=== PATIENT | female | born 1960 | race Caucasian/White ===

== ENCOUNTER 2016-12-16 13:57 | Emergency (ER) | payer SELFPAY ==
[~2016-12-16 13:57] MED LIST: ADVIL200 M2 PO; ALBUTEROL SULF8.5 GM IH; AMLODIPINE BESYL5 MG PO; AMOXICILLIN500 M1 PO; ASPIRIN81 M1 PO; ATARAX50 MG PO; BYSTOLIC10 MG PO; CARVEDILOL6.25 M1 PO; CATAPRES0.2 M1 PO; CELEBREX200 M1 PO; CITALOPRAM HBR20 MG PO; COMBIVENT RESPIM4 G1 INH; COREG12.5 M1 PO; CYMBALTA30 M1; DARVOCET-N 1001 TAB PO; DELTASONE20 MG PO; DULERA 200 MCG/13 G1 INH; EPIPEN0.3 MG/0.1 IM; FLEXERIL10 MG PO; FUROSEMIDE20 M1 PO; HYDROCODON-ACE1 EA17 PO; HYDROCODON-ACE1 EAC7 PO; HYDROXYZINE HCL25 M1 PO; IBUPROFEN400 M1 PO; IBUPROFEN800 M1 PO; LEVAQUIN500 MG PO; LISINOPRIL; LISINOPRIL-HCT1 EAC2 PO; LISINOPRIL40 M1 PO; LOSARTAN POTASS50 MG PO; MAGOX 400400 M1 PO; METHOCARBAMOL750 M1 PO; METOPROLOL SUCC25 M1 PO; MIRTAZAPINE15 M1 PO; MUCINEX600 M1 PO; MULTI VITAMIN1 EAC2 PO; NAPROXEN500 M1 PO; NEURONTIN300 M1 PO; NICOTINE PATCH1 EAC1 TP; NORCO 10/325 TA1 TAB PO; NORCO 5/325 TAB1 TAB PO; NORVASC2.5 M1 PO; NORVASC5 M1 PO; NORVASC5 M2 PO; PERCOCET 5-3251 EACH PO; PERCOCET 5/3251 TAB PO; POTASSIUM CHLO20 ME3 PO; PREDNISONE10 MG PO; PREDNISONE20 MG PO; PRINIVIL20 M1 PO; PROTONIX40 M2 PO; SYMBICORT 160-1 PUFF INH; TESSALON PERLE100 M1; THIAMINE HCL100 M2 PO; TRAMADOL HCL50 M1 PO; TRAZODONE50 MG PO; TYLENOL ARTHRI650 MG PO; TYLENOL EXTRA500 M1 PO; ULTRAM50 M1 PO; VENTOLIN HFA18 G2 PO; XANAX0.25 M1 PO; ZESTRIL20 M3 PO; ZESTRIL40 M2 PO; ZOFRAN4 M2 PO; ZYRTEC PO; [UNRECOGNIZED DRUG - OTHER]; [UNRECOGNIZED DRUG - OTHER] PO; duoneb
[2016-12-16] MEDS ORDERED: PRINIVIL20 M1 PO (14:10)
[2016-12-16] MEDS ORDERED: NICOTINE PATCH1 EACH TP (14:10)
[2016-12-16] MEDS ORDERED: OMEPRAZOLE20 M3 PO (14:28)
[2016-12-16] MEDS ORDERED: NEURONTIN600 M1 PO (14:28)
[2016-12-16] MEDS ORDERED: BAYER CHEWABLE81 M2 CH (14:28)
[2016-12-16] MEDS ORDERED: CLONIDINE HCL0.1 M2 PO (14:29)
[2016-12-16] MEDS ORDERED: ARTHRITIS PAIN650 M7 PO (14:33)
[2016-12-16] MEDS ORDERED: NORVASC5 M2 PO (14:33)
[2016-12-16] MEDS ORDERED: ULTRAM50 M1 PO (14:34)
[2016-12-16] MEDS ORDERED: TESSALON PERLE100 M1 PO ×2 (14:34→16:57)
[2016-12-16] MEDS ORDERED: VENTOLIN HFA18 G2 INH (14:34)
[2016-12-16 15:06] LABS: BASO % 0.6 % (0-2); EOS % 1.1 % (0-7); EOSINOPHIL ABSOLUTE COUNT 0.1 tho/cmm (0.0-0.7); HCT-HEMATOCRIT 36.7 % (34.0-49.0); HGB-HEMOGLOBIN 11.5 gm/dl (12.0-15.5); LYMPH % 25.9 % (20-45); LYMPH ABSOLUTE COUNT 1.4 tho/cmm (0.8-4.5); MCH (MEAN CORPUSCULAR HGB) 26.1 pg (28.0-32.0); MCHC MEAN CORPUSCULAR HGB CONC 31.3 % (32.0-36.0); MCV (MEAN CELL VOLUME) 83.4 fl (82.0-96.0); MONO % 8.6 % (0-12); MONOCYTE ABSOLUTE COUNT 0.5 tho/cmm (0.0-1.2); NEUTROPHIL ABSOLUTE COUNT 3.4 tho/cmm (1.6-8.0); NEUTROPHIL-AUTOMATED 3.4 tho/cmm (1.6-8.0); NEUTROPHILS % 63.8 % (40-80); PLATELET COUNT 243 tho/cmm (150-450); RED CELL DISTRIBUTION WIDTH 16.6 % (12.4-16.4); WHITE BLOOD COUNT 5.3 tho/cmm (4.0-10.0)
[2016-12-16 15:18] LABS: ANION GAP 14 mmol/L (0-20); BLOOD UREA NITROGEN 12 mg/dl (6-24); CALCIUM 8.5 mg/dl (8.5-10.5); CARBON DIOXIDE-VENOUS 24 mmol/L (22-32); CHLORIDE 109 mmol/l (96-110); CREATININE 0.51 mg/dl (0.50-1.10); GLUCOSE 111 mg/dL (70-110); POTASSIUM 3.7 mmol/L (3.7-5.1); SODIUM 143 mmol/L (135-145); eGFR VALUE FOR BLACK >90 mL/Min
[2016-12-16] MEDS ORDERED: NORCO 5-325 TA1 EACH PO (16:57)
[2016-12-16] MEDS ORDERED: PROMETHAZINE HC25 M3 PO (16:57)
[2017-04-15] MEDS ORDERED: PROTONIX40 M2 PO (11:01)
[2017-04-15] MEDS ORDERED: ZOFRAN4 M2 PO/SL (11:01)
[2017-04-15] MEDS ORDERED: CARAFATE1 GM/10 M1 PO (11:02)
[2017-04-15] MEDS ORDERED: BYSTOLIC5 M1 PO (11:02)
[2017-04-15] MEDS ORDERED: PRINIVIL20 M1 PO (11:03)
[2017-04-15] MEDS ORDERED: STOP THE FOLLOWING: (11:03)
[2017-04-16] MEDS ORDERED: VANCOMYCIN HCL500 MG PO (11:19)
[2017-04-16] MEDS ORDERED: PERCOCET 10-321 EACH PO (11:20)
[2017-06-22] MEDS ORDERED: PRINIVIL20 M1 PO (01:14)
[2017-06-22] MEDS ORDERED: NORVASC10 M2 PO (01:15)
[2017-06-22] MEDS ORDERED: OXYCONTIN10 M2 PO (01:16)
[2017-06-22] MEDS ORDERED: LOPRESSOR50 M1 PO (01:16)
[2017-06-22] MEDS ORDERED: ULTRAM50 M1 PO (01:17)
[2017-06-22] MEDS ORDERED: PROTONIX40 M2 PO (01:17)
[2017-06-22] MEDS ORDERED: VALIUM2 M1 PO (01:18)
[2017-06-22] MEDS ORDERED: HYDROCHLOROTH12.5 M2 PO (01:18)
[2017-06-22] MEDS ORDERED: NEURONTIN600 M1 PO (01:19)
[2017-06-22] MEDS ORDERED: CYMBALTA30 M1 PO (01:19)
[2017-06-22] MEDS ORDERED: TYLENOL EXTRA500 M1 PO (01:20)
[2017-06-22] MEDS ORDERED: BACLOFEN10 M1 PO (01:20)
[2017-06-22] MEDS ORDERED: FEOSOL325 M1 PO (01:20)
[2017-06-22] MEDS ORDERED: ZOFRAN4 M2 PO (01:21)
[2017-06-22] MEDS ORDERED: MIRALAX17 G2 PO (01:21)
[2017-06-22] MEDS ORDERED: SYMBICORT 160-1 PUFF INH (01:24)
[2017-06-22] MEDS ORDERED: NORVASC5 M2 PO (10:32)
[2017-06-22] MEDS ORDERED: TENORMIN50 M1 PO (10:32)
[2017-06-22] MEDS ORDERED: SYMBICORT 80-41 PUFF INH (10:33)
== END 2016-12-16 17:48 ==
LOC: EDMED 13:57
PROVIDERS: Emergency Medicine
DX: R07.89 Other chest pain (principal); R05 Cough; E86.0 Dehydration; J44.9 Chronic obstructive pulmonary disease, unspecified; Z90.49 Acquired absence of other specified parts of digestive tract; Z79.51 Long term (current) use of inhaled steroids
CPT/HCPCS: J1170; J2060; J2405; J2930; J7030; Q9967

== ENCOUNTER 2016-12-16 18:15 | Emergency (ER) | payer SELFPAY ==
[~2016-12-16 18:15] MED LIST changes: +ARTHRITIS PAIN650 M7 PO; +BAYER CHEWABLE81 M2 CH; +CLONIDINE HCL0.1 M2 PO; +NEURONTIN600 M1 PO; +NICOTINE PATCH1 EACH TP; +NORCO 5-325 TA1 EACH PO; +OMEPRAZOLE20 M3 PO; +PROMETHAZINE HC25 M3 PO; +TESSALON PERLE100 M1 PO; +VENTOLIN HFA18 G2 INH
[2017-04-15] MEDS ORDERED: PROTONIX40 M2 PO (11:01)
[2017-04-15] MEDS ORDERED: ZOFRAN4 M2 PO/SL (11:01)
[2017-04-15] MEDS ORDERED: BYSTOLIC5 M1 PO (11:02)
[2017-04-15] MEDS ORDERED: CARAFATE1 GM/10 M1 PO (11:02)
[2017-04-15] MEDS ORDERED: PRINIVIL20 M1 PO (11:03)
[2017-04-15] MEDS ORDERED: STOP THE FOLLOWING: (11:03)
[2017-04-16] MEDS ORDERED: VANCOMYCIN HCL500 MG PO (11:19)
[2017-04-16] MEDS ORDERED: PERCOCET 10-321 EACH PO (11:20)
[2017-06-22] MEDS ORDERED: PRINIVIL20 M1 PO (01:14)
[2017-06-22] MEDS ORDERED: NORVASC10 M2 PO (01:15)
[2017-06-22] MEDS ORDERED: OXYCONTIN10 M2 PO (01:16)
[2017-06-22] MEDS ORDERED: LOPRESSOR50 M1 PO (01:16)
[2017-06-22] MEDS ORDERED: PROTONIX40 M2 PO (01:17)
[2017-06-22] MEDS ORDERED: ULTRAM50 M1 PO (01:17)
[2017-06-22] MEDS ORDERED: VALIUM2 M1 PO (01:18)
[2017-06-22] MEDS ORDERED: HYDROCHLOROTH12.5 M2 PO (01:18)
[2017-06-22] MEDS ORDERED: NEURONTIN600 M1 PO (01:19)
[2017-06-22] MEDS ORDERED: CYMBALTA30 M1 PO (01:19)
[2017-06-22] MEDS ORDERED: BACLOFEN10 M1 PO (01:20)
[2017-06-22] MEDS ORDERED: FEOSOL325 M1 PO (01:20)
[2017-06-22] MEDS ORDERED: TYLENOL EXTRA500 M1 PO (01:20)
[2017-06-22] MEDS ORDERED: MIRALAX17 G2 PO (01:21)
[2017-06-22] MEDS ORDERED: ZOFRAN4 M2 PO (01:21)
[2017-06-22] MEDS ORDERED: SYMBICORT 160-1 PUFF INH (01:24)
[2017-06-22] MEDS ORDERED: NORVASC5 M2 PO (10:32)
[2017-06-22] MEDS ORDERED: TENORMIN50 M1 PO (10:32)
[2017-06-22] MEDS ORDERED: SYMBICORT 80-41 PUFF INH (10:33)
== END 2016-12-16 19:29 | disposition left against medical advice (07) ==
LOC: EDMED 18:15
DX: Z53.21 Procedure and treatment not carried out due to patient leaving prior to being seen by health care provider (principal)

== ENCOUNTER 2017-02-15 17:47 | Inpatient (IN) | payer SELFPAY ==
[2017-02-15] MEDS ORDERED: CYMBALTA60 M1 PO (18:16)
[2017-02-15] MEDS ORDERED: BACTRIM DS TAB1 EAC2 PO (18:17)
[2017-02-15 18:29] LABS: BASO % 0.6 % (0-2); EOS % 1.4 % (0-7); EOSINOPHIL ABSOLUTE COUNT 0.1 tho/cmm (0.0-0.7); HCT-HEMATOCRIT 36.3 % (34.0-49.0); HGB-HEMOGLOBIN 11.7 gm/dl (12.0-15.5); LYMPH % 24.2 % (20-45); LYMPH ABSOLUTE COUNT 1.2 tho/cmm (0.8-4.5); MCH (MEAN CORPUSCULAR HGB) 28.2 pg (28.0-32.0); MCHC MEAN CORPUSCULAR HGB CONC 32.2 % (32.0-36.0); MCV (MEAN CELL VOLUME) 87.5 fl (82.0-96.0); MONO % 12.5 % (0-12); MONOCYTE ABSOLUTE COUNT 0.6 tho/cmm (0.0-1.2); NEUTROPHIL ABSOLUTE COUNT 3.1 tho/cmm (1.6-8.0); NEUTROPHIL-AUTOMATED 3.1 tho/cmm (1.6-8.0); NEUTROPHILS % 61.3 % (40-80); PLATELET COUNT 272 tho/cmm (150-450); RED BLOOD COUNT 4.15 mil/cmm (4.00-5.20); RED CELL DISTRIBUTION WIDTH 17.3 % (12.4-16.4); WHITE BLOOD COUNT 5.1 tho/cmm (4.0-10.0)
[2017-02-15 18:43] LABS: ANION GAP 15 mmol/L (0-20); BLOOD UREA NITROGEN 11 mg/dl (6-24); CALCIUM 8.6 mg/dl (8.5-10.5); CARBON DIOXIDE-VENOUS 24 mmol/L (22-32); CHLORIDE 107 mmol/l (96-110); CREATININE 0.59 mg/dl (0.50-1.10); GLUCOSE 95 mg/dL (70-110); POTASSIUM 3.7 mmol/L (3.7-5.1); SODIUM 142 mmol/L (135-145); eGFR VALUE FOR BLACK >90 mL/Min
[2017-02-15 20:42] LABS: URINE BILIRUBIN NEGATIVE (NEG); URINE BLOOD NEGATIVE (NEG); URINE GLUCOSE (UA) NEGATIVE (NEG); URINE KETONE SMALL (NEG); URINE LEUKOCYTE ESTERASE NEGATIVE (NEG); URINE NITRITE NEGATIVE (NEG); URINE PROTEIN NEGATIVE (NEG)
[2017-02-15 20:52] LABS: URINE APPEARANCE CLEAR; URINE COLOR YELLOW
[2017-02-16 06:36] LABS: BASO % 0.3 % (0-2); HCT-HEMATOCRIT 39.4 % (34.0-49.0); HGB-HEMOGLOBIN 12.9 gm/dl (12.0-15.5); LYMPH % 11.1 % (20-45); LYMPH ABSOLUTE COUNT 0.4 tho/cmm (0.8-4.5); MCH (MEAN CORPUSCULAR HGB) 28.4 pg (28.0-32.0); MCHC MEAN CORPUSCULAR HGB CONC 32.7 % (32.0-36.0); MCV (MEAN CELL VOLUME) 86.6 fl (82.0-96.0); MEAN PLATELET VOLUME 9.2 cmc (9.4-12.4); MONO % 0.9 % (0-12); NEUTROPHIL ABSOLUTE COUNT 2.8 tho/cmm (1.6-8.0); NEUTROPHIL-AUTOMATED 2.8 tho/cmm (1.6-8.0); NEUTROPHILS % 87.7 % (40-80); PLATELET COUNT 261 tho/cmm (150-450); RED BLOOD COUNT 4.55 mil/cmm (4.00-5.20); RED CELL DISTRIBUTION WIDTH 16.8 % (12.4-16.4); WHITE BLOOD COUNT 3.2 tho/cmm (4.0-10.0)
[2017-02-16 06:46] LABS: ANION GAP 15 mmol/L (0-20); BLOOD UREA NITROGEN 4 mg/dl (6-24); CALCIUM 8.7 mg/dl (8.5-10.5); CARBON DIOXIDE-VENOUS 22 mmol/L (22-32); CHLORIDE 104 mmol/l (96-110); CREATININE 0.46 mg/dl (0.50-1.10); POTASSIUM 3.6 mmol/L (3.7-5.1); SODIUM 137 mmol/L (135-145); eGFR VALUE FOR BLACK >90 mL/Min
[2017-02-16 06:49] LABS: GLUCOSE 172 mg/dL (70-110)
[2017-02-19] MEDS ORDERED: CATAPRES0.1 M1 PO (16:28)
[2017-02-19] MEDS ORDERED: PREDNISONE10 M1 PO (16:31)
[2017-04-15] MEDS ORDERED: PROTONIX40 M2 PO (11:01)
[2017-04-15] MEDS ORDERED: ZOFRAN4 M2 PO/SL (11:01)
[2017-04-15] MEDS ORDERED: CARAFATE1 GM/10 M1 PO (11:02)
[2017-04-15] MEDS ORDERED: BYSTOLIC5 M1 PO (11:02)
[2017-04-15] MEDS ORDERED: PRINIVIL20 M1 PO (11:03)
[2017-04-15] MEDS ORDERED: STOP THE FOLLOWING: (11:03)
[2017-04-16] MEDS ORDERED: VANCOMYCIN HCL500 MG PO (11:19)
[2017-04-16] MEDS ORDERED: PERCOCET 10-321 EACH PO (11:20)
[2017-06-22] MEDS ORDERED: PRINIVIL20 M1 PO (01:14)
[2017-06-22] MEDS ORDERED: NORVASC10 M2 PO (01:15)
[2017-06-22] MEDS ORDERED: LOPRESSOR50 M1 PO (01:16)
[2017-06-22] MEDS ORDERED: OXYCONTIN10 M2 PO (01:16)
[2017-06-22] MEDS ORDERED: ULTRAM50 M1 PO (01:17)
[2017-06-22] MEDS ORDERED: PROTONIX40 M2 PO (01:17)
[2017-06-22] MEDS ORDERED: HYDROCHLOROTH12.5 M2 PO (01:18)
[2017-06-22] MEDS ORDERED: VALIUM2 M1 PO (01:18)
[2017-06-22] MEDS ORDERED: NEURONTIN600 M1 PO (01:19)
[2017-06-22] MEDS ORDERED: CYMBALTA30 M1 PO (01:19)
[2017-06-22] MEDS ORDERED: TYLENOL EXTRA500 M1 PO (01:20)
[2017-06-22] MEDS ORDERED: FEOSOL325 M1 PO (01:20)
[2017-06-22] MEDS ORDERED: BACLOFEN10 M1 PO (01:20)
[2017-06-22] MEDS ORDERED: MIRALAX17 G2 PO (01:21)
[2017-06-22] MEDS ORDERED: ZOFRAN4 M2 PO (01:21)
[2017-06-22] MEDS ORDERED: SYMBICORT 160-1 PUFF INH (01:24)
[2017-06-22] MEDS ORDERED: NORVASC5 M2 PO (10:32)
[2017-06-22] MEDS ORDERED: TENORMIN50 M1 PO (10:32)
[2017-06-22] MEDS ORDERED: SYMBICORT 80-41 PUFF INH (10:33)
== END 2017-02-19 18:32 | DRG 155 ==
LOC: EDMED 17:47 → EMR2 21:08 → CAR1 22:25
PROVIDERS: Emergency Medicine; Internal Medicine; ADMIT Hospitalist
PROC: 0CJS8ZZ Inspection of Larynx, Via Natural or Artificial Opening Endoscopic (ICD-10-PCS; principal; 2017-02-19)
DX: J38.3 Other diseases of vocal cords (principal); J45.901 Unspecified asthma with (acute) exacerbation; I10 Essential (primary) hypertension; E86.0 Dehydration; R11.2 Nausea with vomiting, unspecified; K21.9 Gastro-esophageal reflux disease without esophagitis; F32.9 Major depressive disorder, single episode, unspecified; R51 Headache; Z87.442 Personal history of urinary calculi; Z87.891 Personal history of nicotine dependence; J45.909 Unspecified asthma, uncomplicated; G47.33 Obstructive sleep apnea (adult) (pediatric); K59.00 Constipation, unspecified; B34.9 Viral infection, unspecified
CPT/HCPCS: G8978-GP-CI; G8978-GP-CK; G8979-GP-CI; G8979-GP-CJ; G8987-GO-CJ; G8988-GO-CI; G8989-GO-CJ; J0360; J1170; J2060; J2270; J2405; J2930; J7030; J7512; Q9967

== ENCOUNTER 2017-02-22 05:21 | Inpatient (IN) | payer SELFPAY ==
[~2017-02-22 05:21] MED LIST changes: +BACTRIM DS TAB1 EAC2 PO; +CATAPRES0.1 M1 PO; +CYMBALTA60 M1 PO; +PREDNISONE10 M1 PO
[2017-02-22 06:43] LABS: ALB/GLOB RATIO 1.1 (0.8-2.0); ALKALINE PHOSPHATASE 128 U/L (33-138); ALT/SGPT 39 U/L (12-78); ANION GAP 16 mmol/L (0-20); AST/SGOT 22 U/L (10-40); BLOOD UREA NITROGEN 12 mg/dl (6-24); CALCIUM 8.7 mg/dl (8.5-10.5); CARBON DIOXIDE-VENOUS 24 mmol/L (22-32); CHLORIDE 102 mmol/l (96-110); CREATININE 0.44 mg/dl (0.50-1.10); GLUCOSE 79 mg/dL (70-110); LIPASE 73 U/L (73-393); POTASSIUM 3.6 mmol/L (3.7-5.1); SODIUM 138 mmol/L (135-145); eGFR VALUE FOR BLACK >90 mL/Min
[2017-02-22 06:47] LABS: BASO % 0.2 % (0-2); EOS % 1.5 % (0-7); EOSINOPHIL ABSOLUTE COUNT 0.1 tho/cmm (0.0-0.7); HGB-HEMOGLOBIN 13.6 gm/dl (12.0-15.5); IMMATURE GRANULOCYTES ABSOLUTE 0.05 tho/cmm (0-0.03); IMMATURE GRANULOCYTES PERCENT 1.1 % (0-0.3); LYMPH % 22.3 % (20-45); MCH (MEAN CORPUSCULAR HGB) 28.8 pg (28.0-32.0); MCHC MEAN CORPUSCULAR HGB CONC 33.2 % (32.0-36.0); MCV (MEAN CELL VOLUME) 86.9 fl (82.0-96.0); MEAN PLATELET VOLUME 9.9 cmc (9.4-12.4); MONOCYTE ABSOLUTE COUNT 0.5 tho/cmm (0.0-1.2); NEUTROPHILS % 63.9 % (40-80); PLATELET COUNT 109 tho/cmm (150-450); RED BLOOD COUNT 4.72 mil/cmm (4.00-5.20); RED CELL DISTRIBUTION WIDTH 17.2 % (12.4-16.4); WHITE BLOOD COUNT 4.6 tho/cmm (4.0-10.0)
[2017-02-24 06:37] LABS: ALBUMIN 3.6 g/dl (3.5-5.0); BLOOD UREA NITROGEN 9 mg/dl (6-24); CALCIUM 8.7 mg/dl (8.5-10.5); CARBON DIOXIDE-VENOUS 29 mmol/L (22-32); CHLORIDE 104 mmol/l (96-110); CREATININE 0.57 mg/dl (0.50-1.10); GLUCOSE 95 mg/dL (70-110); PHOSPHOROUS 3.4 mg/dl (2.5-4.9); SODIUM 141 mmol/L (135-145); eGFR VALUE FOR BLACK >90 mL/Min
[2017-02-24 06:40] LABS: ANION GAP 12 mmol/L (0-20)
[2017-02-24 06:41] LABS: MAGNESIUM 2.2 mg/dl (1.8-2.6)
[2017-02-26 05:32] LABS: BASO % 0.3 % (0-2); EOS % 3.3 % (0-7); EOSINOPHIL ABSOLUTE COUNT 0.2 tho/cmm (0.0-0.7); HCT-HEMATOCRIT 40.5 % (34.0-49.0); HGB-HEMOGLOBIN 12.4 gm/dl (12.0-15.5); IMMATURE GRANULOCYTES ABSOLUTE 0.03 tho/cmm (0-0.03); IMMATURE GRANULOCYTES PERCENT 0.4 % (0-0.3); LYMPH % 28.7 % (20-45); LYMPH ABSOLUTE COUNT 1.9 tho/cmm (0.8-4.5); MCH (MEAN CORPUSCULAR HGB) 28.5 pg (28.0-32.0); MCHC MEAN CORPUSCULAR HGB CONC 30.6 % (32.0-36.0); MEAN PLATELET VOLUME 9.5 cmc (9.4-12.4); MONOCYTE ABSOLUTE COUNT 0.9 tho/cmm (0.0-1.2); NEUTROPHIL ABSOLUTE COUNT 3.6 tho/cmm (1.6-8.0); NEUTROPHIL-AUTOMATED 3.6 tho/cmm (1.6-8.0); NEUTROPHILS % 54.3 % (40-80); PLATELET COUNT 244 tho/cmm (150-450); RED BLOOD COUNT 4.35 mil/cmm (4.00-5.20); WHITE BLOOD COUNT 6.7 tho/cmm (4.0-10.0)
[2017-02-26 05:41] LABS: MCV (MEAN CELL VOLUME) 93.1 fl (82.0-96.0)
[2017-02-26 05:43] LABS: ANION GAP 11 mmol/L (0-20); BLOOD UREA NITROGEN 14 mg/dl (6-24); CALCIUM 8.6 mg/dl (8.5-10.5); CARBON DIOXIDE-VENOUS 31 mmol/L (22-32); CHLORIDE 104 mmol/l (96-110); CREATININE 0.57 mg/dl (0.50-1.10); GLUCOSE 97 mg/dL (70-110); SODIUM 142 mmol/L (135-145); eGFR VALUE FOR BLACK >90 mL/Min
[2017-02-26 05:45] LABS: POTASSIUM 4.3 mmol/L (3.7-5.1)
[2017-02-28 06:36] LABS: BASO % 0.3 % (0-2); EOS % 3.2 % (0-7); EOSINOPHIL ABSOLUTE COUNT 0.2 tho/cmm (0.0-0.7); HCT-HEMATOCRIT 39.4 % (34.0-49.0); HGB-HEMOGLOBIN 12.1 gm/dl (12.0-15.5); LYMPH % 18.8 % (20-45); LYMPH ABSOLUTE COUNT 1.1 tho/cmm (0.8-4.5); MCH (MEAN CORPUSCULAR HGB) 28.7 pg (28.0-32.0); MCHC MEAN CORPUSCULAR HGB CONC 30.7 % (32.0-36.0); MCV (MEAN CELL VOLUME) 93.4 fl (82.0-96.0); MEAN PLATELET VOLUME 10.1 cmc (9.4-12.4); MONO % 12.9 % (0-12); MONOCYTE ABSOLUTE COUNT 0.8 tho/cmm (0.0-1.2); NEUTROPHIL ABSOLUTE COUNT 3.9 tho/cmm (1.6-8.0); NEUTROPHIL-AUTOMATED 3.9 tho/cmm (1.6-8.0); NEUTROPHILS % 64.8 % (40-80); PLATELET COUNT 221 tho/cmm (150-450); RED BLOOD COUNT 4.22 mil/cmm (4.00-5.20); RED CELL DISTRIBUTION WIDTH 17.5 % (12.4-16.4)
[2017-03-02 06:29] LABS: BASO % 0.9 % (0-2); EOS % 4.4 % (0-7); EOSINOPHIL ABSOLUTE COUNT 0.1 tho/cmm (0.0-0.7); HCT-HEMATOCRIT 37.3 % (34.0-49.0); HGB-HEMOGLOBIN 11.7 gm/dl (12.0-15.5); IMMATURE GRANULOCYTES ABSOLUTE 0.01 tho/cmm (0-0.03); IMMATURE GRANULOCYTES PERCENT 0.3 % (0-0.3); LYMPH % 25.4 % (20-45); LYMPH ABSOLUTE COUNT 0.8 tho/cmm (0.8-4.5); MCH (MEAN CORPUSCULAR HGB) 28.8 pg (28.0-32.0); MCHC MEAN CORPUSCULAR HGB CONC 31.4 % (32.0-36.0); MCV (MEAN CELL VOLUME) 91.9 fl (82.0-96.0); MEAN PLATELET VOLUME 9.9 cmc (9.4-12.4); MONO % 17.9 % (0-12); MONOCYTE ABSOLUTE COUNT 0.6 tho/cmm (0.0-1.2); NEUTROPHIL ABSOLUTE COUNT 1.6 tho/cmm (1.6-8.0); NEUTROPHIL-AUTOMATED 1.6 tho/cmm (1.6-8.0); NEUTROPHILS % 51.1 % (40-80); PLATELET COUNT 195 tho/cmm (150-450); RED BLOOD COUNT 4.06 mil/cmm (4.00-5.20); RED CELL DISTRIBUTION WIDTH 17.6 % (12.4-16.4); WHITE BLOOD COUNT 3.2 tho/cmm (4.0-10.0)
[2017-03-02 16:33] LABS: ANION GAP 15 mmol/L (0-20); BLOOD UREA NITROGEN 8 mg/dl (6-24); CALCIUM 8.9 mg/dl (8.5-10.5); CARBON DIOXIDE-VENOUS 29 mmol/L (22-32); CHLORIDE 106 mmol/l (96-110); CREATININE 0.56 mg/dl (0.50-1.10); GLUCOSE 96 mg/dL (70-110); MAGNESIUM 1.7 mg/dl (1.8-2.6); PHOSPHOROUS 4.1 mg/dl (2.5-4.9); POTASSIUM 3.9 mmol/L (3.7-5.1); SODIUM 146 mmol/L (135-145); eGFR VALUE FOR BLACK >90 mL/Min
[2017-03-03] MEDS ORDERED: PROMETHAZINE HC25 M3 PO (13:43)
[2017-03-03] MEDS ORDERED: FLAGYL500 M1 PO (13:44)
[2017-03-03] MEDS ORDERED: NORCO 5-325 TA1 EACH PO (13:46)
[2017-03-03] MEDS ORDERED: COZAAR100 M1 PO (13:48)
[2017-03-03] MEDS ORDERED: METOPROLOL TART25 M1 PO (13:49)
[2017-03-03] MEDS ORDERED: ZOLOFT50 M1 PO (16:11)
[2017-03-03] MEDS ORDERED: ATIVAN1 M2 PO (16:12)
[2017-03-03] MEDS ORDERED: ACETAMINOPHEN325 M2 PO (16:19)
[2017-04-15] MEDS ORDERED: PROTONIX40 M2 PO (11:01)
[2017-04-15] MEDS ORDERED: ZOFRAN4 M2 PO/SL (11:01)
[2017-04-15] MEDS ORDERED: BYSTOLIC5 M1 PO (11:02)
[2017-04-15] MEDS ORDERED: CARAFATE1 GM/10 M1 PO (11:02)
[2017-04-15] MEDS ORDERED: PRINIVIL20 M1 PO (11:03)
[2017-04-15] MEDS ORDERED: STOP THE FOLLOWING: (11:03)
[2017-04-16] MEDS ORDERED: VANCOMYCIN HCL500 MG PO (11:19)
[2017-04-16] MEDS ORDERED: PERCOCET 10-321 EACH PO (11:20)
[2017-06-22] MEDS ORDERED: PRINIVIL20 M1 PO (01:14)
[2017-06-22] MEDS ORDERED: NORVASC10 M2 PO (01:15)
[2017-06-22] MEDS ORDERED: OXYCONTIN10 M2 PO (01:16)
[2017-06-22] MEDS ORDERED: LOPRESSOR50 M1 PO (01:16)
[2017-06-22] MEDS ORDERED: ULTRAM50 M1 PO (01:17)
[2017-06-22] MEDS ORDERED: PROTONIX40 M2 PO (01:17)
[2017-06-22] MEDS ORDERED: VALIUM2 M1 PO (01:18)
[2017-06-22] MEDS ORDERED: HYDROCHLOROTH12.5 M2 PO (01:18)
[2017-06-22] MEDS ORDERED: CYMBALTA30 M1 PO (01:19)
[2017-06-22] MEDS ORDERED: NEURONTIN600 M1 PO (01:19)
[2017-06-22] MEDS ORDERED: TYLENOL EXTRA500 M1 PO (01:20)
[2017-06-22] MEDS ORDERED: FEOSOL325 M1 PO (01:20)
[2017-06-22] MEDS ORDERED: BACLOFEN10 M1 PO (01:20)
[2017-06-22] MEDS ORDERED: MIRALAX17 G2 PO (01:21)
[2017-06-22] MEDS ORDERED: ZOFRAN4 M2 PO (01:21)
[2017-06-22] MEDS ORDERED: SYMBICORT 160-1 PUFF INH (01:24)
[2017-06-22] MEDS ORDERED: NORVASC5 M2 PO (10:32)
[2017-06-22] MEDS ORDERED: TENORMIN50 M1 PO (10:32)
[2017-06-22] MEDS ORDERED: SYMBICORT 80-41 PUFF INH (10:33)
== END 2017-03-03 17:46 | DRG 372 ==
LOC: EDMED 05:21 → EMR2 10:07 → 5WF 13:39
PROVIDERS: Emergency Medicine; Internal Medicine; Internal Medicine Nephrology; Specialist; ADMIT Internal Medicine
PROC: 0DB98ZX Excision of Duodenum, Via Natural or Artificial Opening Endoscopic, Diagnostic (ICD-10-PCS; principal; 2017-02-22)
PROC: 0DB68ZX Excision of Stomach, Via Natural or Artificial Opening Endoscopic, Diagnostic (ICD-10-PCS; 2017-02-22)
PROC: 05HC33Z Insertion of Infusion Device into Left Basilic Vein, Percutaneous Approach (ICD-10-PCS; 2017-02-22)
DX: A04.7 Enterocolitis due to Clostridium difficile (principal); J45.901 Unspecified asthma with (acute) exacerbation; D69.6 Thrombocytopenia, unspecified; K92.0 Hematemesis; K21.9 Gastro-esophageal reflux disease without esophagitis; I48.91 Unspecified atrial fibrillation; F43.10 Post-traumatic stress disorder, unspecified; F10.21 Alcohol dependence, in remission; R63.4 Abnormal weight loss; K59.00 Constipation, unspecified; F41.8 Other specified anxiety disorders; I16.0 Hypertensive urgency; Z87.891 Personal history of nicotine dependence; Z79.82 Long term (current) use of aspirin; Z87.11 Personal history of peptic ulcer disease; Z90.49 Acquired absence of other specified parts of digestive tract; Z86.73 Personal history of transient ischemic attack (TIA), and cerebral infarction without residual deficits; Z86.718 Personal history of other venous thrombosis and embolism
CPT/HCPCS: C1751; C9113; J0360; J2060; J2405; J7030; J7050; Q9967

== ENCOUNTER 2017-03-11 05:43 | Inpatient (IN) | payer SELFPAY ==
[~2017-03-11 05:43] MED LIST changes: +ACETAMINOPHEN325 M2 PO; +ATIVAN1 M2 PO; +COZAAR100 M1 PO; +FLAGYL500 M1 PO; +METOPROLOL TART25 M1 PO; +ZOLOFT50 M1 PO
[2017-03-11 06:42] LABS: BASO % 0.2 % (0-2); EOS % 2.4 % (0-7); EOSINOPHIL ABSOLUTE COUNT 0.2 tho/cmm (0.0-0.7); HCT-HEMATOCRIT 39.3 % (34.0-49.0); HGB-HEMOGLOBIN 13.2 gm/dl (12.0-15.5); IMMATURE GRANULOCYTES ABSOLUTE 0.01 tho/cmm (0-0.03); IMMATURE GRANULOCYTES PERCENT 0.2 % (0-0.3); LYMPH ABSOLUTE COUNT 0.8 tho/cmm (0.8-4.5); MCH (MEAN CORPUSCULAR HGB) 29.9 pg (28.0-32.0); MCHC MEAN CORPUSCULAR HGB CONC 33.6 % (32.0-36.0); MCV (MEAN CELL VOLUME) 88.9 fl (82.0-96.0); MEAN PLATELET VOLUME 9.5 cmc (9.4-12.4); MONO % 8.5 % (0-12); MONOCYTE ABSOLUTE COUNT 0.5 tho/cmm (0.0-1.2); NEUTROPHIL ABSOLUTE COUNT 4.8 tho/cmm (1.6-8.0); NEUTROPHIL-AUTOMATED 4.8 tho/cmm (1.6-8.0); NEUTROPHILS % 76.7 % (40-80); PLATELET COUNT 235 tho/cmm (150-450); RED BLOOD COUNT 4.42 mil/cmm (4.00-5.20); RED CELL DISTRIBUTION WIDTH 16.1 % (12.4-16.4); WHITE BLOOD COUNT 6.2 tho/cmm (4.0-10.0)
[2017-03-11 06:54] LABS: ALBUMIN 3.8 g/dl (3.5-5.0); ALCOHOL (ETOH) <10 mg/dl (<10); ALKALINE PHOSPHATASE 152 U/L (33-138); ALT/SGPT 67 U/L (12-78); AST/SGOT 37 U/L (10-40); BILIRUBIN,TOTAL 0.5 mg/dl (0-1.5); BLOOD UREA NITROGEN 9 mg/dl (6-24); CARBON DIOXIDE-VENOUS 25 mmol/L (22-32); CHLORIDE 104 mmol/l (96-110); CREATININE 0.69 mg/dl (0.50-1.10); GLUCOSE 115 mg/dL (70-110); LIPASE 96 U/L (73-393); SODIUM 141 mmol/L (135-145); eGFR VALUE FOR BLACK >90 mL/Min
[2017-03-11 06:58] LABS: ANION GAP 15 mmol/L (0-20); C-REACTIVE PROTEIN <0.3 mg/dl (0-0.9); POTASSIUM 2.9 mmol/L (3.7-5.1)
[2017-03-11 07:07] LABS: URINE APPEARANCE HAZY; URINE BILIRUBIN SMALL (NEG); URINE BLOOD MODERATE (NEG); URINE COLOR YELLOW; URINE GLUCOSE (UA) NEGATIVE (NEG); URINE KETONE SMALL (NEG); URINE LEUKOCYTE ESTERASE POSITIVE (NEG); URINE NITRITE NEGATIVE (NEG); URINE PROTEIN MODERATE (NEG); URINE SPECIFIC GRAVITY 1.015 (1.003-1.030)
[2017-03-11 07:16] LABS: URINE MUCUS 2+
[2017-03-11 07:17] LABS: URINE AMORPHOUS 1+; URINE BACTERIA 1+; URINE EPITHELIAL CELLS 0-2 /[HPF] (0-10); URINE RBC RARE /[HPF] (0-5)
[2017-03-11 09:37] LABS: MAGNESIUM 1.6 mg/dl (1.8-2.6)
[2017-03-11] MEDS ORDERED: OMEPRAZOLE20 M3 PO (11:52)
[2017-03-11] MEDS ORDERED: PRINIVIL20 M1 PO (11:52)
[2017-03-11] MEDS ORDERED: IPRAT-ALBUT 0.5-3 ML INH (11:53)
[2017-03-12 08:48] LABS: BASO % 0.3 % (0-2); EOS % 5.2 % (0-7); EOSINOPHIL ABSOLUTE COUNT 0.2 tho/cmm (0.0-0.7); HCT-HEMATOCRIT 35.1 % (34.0-49.0); HGB-HEMOGLOBIN 11.4 gm/dl (12.0-15.5); LYMPH % 22.7 % (20-45); LYMPH ABSOLUTE COUNT 0.8 tho/cmm (0.8-4.5); MCH (MEAN CORPUSCULAR HGB) 29.6 pg (28.0-32.0); MCHC MEAN CORPUSCULAR HGB CONC 32.5 % (32.0-36.0); MCV (MEAN CELL VOLUME) 91.2 fl (82.0-96.0); MEAN PLATELET VOLUME 9.4 cmc (9.4-12.4); MONO % 12.3 % (0-12); MONOCYTE ABSOLUTE COUNT 0.5 tho/cmm (0.0-1.2); NEUTROPHIL ABSOLUTE COUNT 2.2 tho/cmm (1.6-8.0); NEUTROPHIL-AUTOMATED 2.2 tho/cmm (1.6-8.0); NEUTROPHILS % 59.5 % (40-80); PLATELET COUNT 204 tho/cmm (150-450); RED BLOOD COUNT 3.85 mil/cmm (4.00-5.20); RED CELL DISTRIBUTION WIDTH 15.9 % (12.4-16.4); WHITE BLOOD COUNT 3.7 tho/cmm (4.0-10.0)
[2017-03-12 08:57] LABS: ANION GAP 12 mmol/L (0-20); BLOOD UREA NITROGEN 3 mg/dl (6-24); CALCIUM 8.2 mg/dl (8.5-10.5); CARBON DIOXIDE-VENOUS 26 mmol/L (22-32); CHLORIDE 107 mmol/l (96-110); CREATININE 0.36 mg/dl (0.50-1.10); GLUCOSE 98 mg/dL (70-110); MAGNESIUM 1.8 mg/dl (1.8-2.6); POTASSIUM 3.3 mmol/L (3.7-5.1); SODIUM 142 mmol/L (135-145); eGFR VALUE FOR BLACK >90 mL/Min
[2017-03-13 06:33] LABS: ANION GAP 12 mmol/L (0-20); BLOOD UREA NITROGEN 5 mg/dl (6-24); CALCIUM 8.3 mg/dl (8.5-10.5); CARBON DIOXIDE-VENOUS 25 mmol/L (22-32); CHLORIDE 108 mmol/l (96-110); GLUCOSE 121 mg/dL (70-110); POTASSIUM 3.9 mmol/L (3.7-5.1); SODIUM 141 mmol/L (135-145); eGFR VALUE FOR BLACK >90 mL/Min
[2017-03-15 06:07] LABS: BASO % 0.3 % (0-2); EOS % 7.6 % (0-7); EOSINOPHIL ABSOLUTE COUNT 0.3 tho/cmm (0.0-0.7); HGB-HEMOGLOBIN 10.9 gm/dl (12.0-15.5); IMMATURE GRANULOCYTES ABSOLUTE 0.01 tho/cmm (0-0.03); IMMATURE GRANULOCYTES PERCENT 0.3 % (0-0.3); LYMPH % 27.1 % (20-45); LYMPH ABSOLUTE COUNT 1.1 tho/cmm (0.8-4.5); MCH (MEAN CORPUSCULAR HGB) 29.4 pg (28.0-32.0); MCHC MEAN CORPUSCULAR HGB CONC 32.1 % (32.0-36.0); MCV (MEAN CELL VOLUME) 91.6 fl (82.0-96.0); MONO % 9.6 % (0-12); MONOCYTE ABSOLUTE COUNT 0.4 tho/cmm (0.0-1.2); NEUTROPHIL ABSOLUTE COUNT 2.2 tho/cmm (1.6-8.0); NEUTROPHIL-AUTOMATED 2.2 tho/cmm (1.6-8.0); NEUTROPHILS % 55.1 % (40-80); PLATELET COUNT 159 tho/cmm (150-450); RED BLOOD COUNT 3.71 mil/cmm (4.00-5.20); RED CELL DISTRIBUTION WIDTH 16.9 % (12.4-16.4)
[2017-03-15 06:19] LABS: ANION GAP 11 mmol/L (0-20); BLOOD UREA NITROGEN 8 mg/dl (6-24); CALCIUM 8.9 mg/dl (8.5-10.5); CARBON DIOXIDE-VENOUS 29 mmol/L (22-32); CHLORIDE 105 mmol/l (96-110); CREATININE 0.48 mg/dl (0.50-1.10); GLUCOSE 131 mg/dL (70-110); POTASSIUM 4.1 mmol/L (3.7-5.1); SODIUM 141 mmol/L (135-145); eGFR VALUE FOR BLACK >90 mL/Min
[2017-03-15] MEDS ORDERED: MIRALAX17 G2 PO (10:22)
[2017-03-15] MEDS ORDERED: SENNA8.6 M2 PO (10:24)
[2017-04-15] MEDS ORDERED: PROTONIX40 M2 PO (11:01)
[2017-04-15] MEDS ORDERED: ZOFRAN4 M2 PO/SL (11:01)
[2017-04-15] MEDS ORDERED: CARAFATE1 GM/10 M1 PO (11:02)
[2017-04-15] MEDS ORDERED: BYSTOLIC5 M1 PO (11:02)
[2017-04-15] MEDS ORDERED: PRINIVIL20 M1 PO (11:03)
[2017-04-15] MEDS ORDERED: STOP THE FOLLOWING: (11:03)
[2017-04-16] MEDS ORDERED: VANCOMYCIN HCL500 MG PO (11:19)
[2017-04-16] MEDS ORDERED: PERCOCET 10-321 EACH PO (11:20)
[2017-06-22] MEDS ORDERED: PRINIVIL20 M1 PO (01:14)
[2017-06-22] MEDS ORDERED: NORVASC10 M2 PO (01:15)
[2017-06-22] MEDS ORDERED: OXYCONTIN10 M2 PO (01:16)
[2017-06-22] MEDS ORDERED: LOPRESSOR50 M1 PO (01:16)
[2017-06-22] MEDS ORDERED: PROTONIX40 M2 PO (01:17)
[2017-06-22] MEDS ORDERED: ULTRAM50 M1 PO (01:17)
[2017-06-22] MEDS ORDERED: HYDROCHLOROTH12.5 M2 PO (01:18)
[2017-06-22] MEDS ORDERED: VALIUM2 M1 PO (01:18)
[2017-06-22] MEDS ORDERED: CYMBALTA30 M1 PO (01:19)
[2017-06-22] MEDS ORDERED: NEURONTIN600 M1 PO (01:19)
[2017-06-22] MEDS ORDERED: FEOSOL325 M1 PO (01:20)
[2017-06-22] MEDS ORDERED: BACLOFEN10 M1 PO (01:20)
[2017-06-22] MEDS ORDERED: TYLENOL EXTRA500 M1 PO (01:20)
[2017-06-22] MEDS ORDERED: MIRALAX17 G2 PO (01:21)
[2017-06-22] MEDS ORDERED: ZOFRAN4 M2 PO (01:21)
[2017-06-22] MEDS ORDERED: SYMBICORT 160-1 PUFF INH (01:24)
[2017-06-22] MEDS ORDERED: NORVASC5 M2 PO (10:32)
[2017-06-22] MEDS ORDERED: TENORMIN50 M1 PO (10:32)
[2017-06-22] MEDS ORDERED: SYMBICORT 80-41 PUFF INH (10:33)
== END 2017-03-15 15:05 | DRG 372 ==
LOC: EDMED 05:43 → EMR2 09:48 → 5WE 13:14
PROVIDERS: Emergency Medicine; Family Medicine; Physician Assistant; ADMIT Internal Medicine
PROC: 02HV33Z Insertion of Infusion Device into Superior Vena Cava, Percutaneous Approach (ICD-10-PCS; principal; 2017-03-11)
DX: A04.7 Enterocolitis due to Clostridium difficile (principal); E87.2 Acidosis; N39.0 Urinary tract infection, site not specified; K21.9 Gastro-esophageal reflux disease without esophagitis; Z87.11 Personal history of peptic ulcer disease; F41.9 Anxiety disorder, unspecified; F32.9 Major depressive disorder, single episode, unspecified; J44.9 Chronic obstructive pulmonary disease, unspecified; Z87.891 Personal history of nicotine dependence; Z79.82 Long term (current) use of aspirin; E87.6 Hypokalemia; J45.909 Unspecified asthma, uncomplicated; F43.10 Post-traumatic stress disorder, unspecified; E78.5 Hyperlipidemia, unspecified; M06.9 Rheumatoid arthritis, unspecified; Z88.8 Allergy status to other drugs, medicaments and biological substances; Z88.1 Allergy status to other antibiotic agents; Z91.040 Latex allergy status; E86.0 Dehydration; K59.00 Constipation, unspecified
CPT/HCPCS: C1751; C9113; G0480; J1650; J2060; J2270; J2405; J3475; J3480; J7030

== ENCOUNTER 2017-03-18 12:29 | Inpatient (IN) | payer SELFPAY ==
[~2017-03-18 12:29] MED LIST changes: +IPRAT-ALBUT 0.5-3 ML INH; +MIRALAX17 G2 PO; +SENNA8.6 M2 PO
[2017-03-18 13:56] LABS: BASO % 0.8 % (0-2); EOS % 0.2 % (0-7); HCT-HEMATOCRIT 40.1 % (34.0-49.0); HGB-HEMOGLOBIN 13.2 gm/dl (12.0-15.5); IMMATURE GRANULOCYTES ABSOLUTE 0.01 tho/cmm (0-0.03); IMMATURE GRANULOCYTES PERCENT 0.2 % (0-0.3); LYMPH % 24.3 % (20-45); LYMPH ABSOLUTE COUNT 1.2 tho/cmm (0.8-4.5); MCH (MEAN CORPUSCULAR HGB) 29.5 pg (28.0-32.0); MCHC MEAN CORPUSCULAR HGB CONC 32.9 % (32.0-36.0); MCV (MEAN CELL VOLUME) 89.5 fl (82.0-96.0); MONO % 5.7 % (0-12); MONOCYTE ABSOLUTE COUNT 0.3 tho/cmm (0.0-1.2); NEUTROPHIL ABSOLUTE COUNT 3.4 tho/cmm (1.6-8.0); NEUTROPHIL-AUTOMATED 3.4 tho/cmm (1.6-8.0); NEUTROPHILS % 68.8 % (40-80); PLATELET COUNT 233 tho/cmm (150-450); RED BLOOD COUNT 4.48 mil/cmm (4.00-5.20); WHITE BLOOD COUNT 4.9 tho/cmm (4.0-10.0)
[2017-03-18 14:08] LABS: ALB/GLOB RATIO 1.1 (0.8-2.0); ALBUMIN 4.4 g/dl (3.5-5.0); ALKALINE PHOSPHATASE 142 U/L (33-138); ALT/SGPT 37 U/L (12-78); ANION GAP 23 mmol/L (0-20); AST/SGOT 25 U/L (10-40); BILIRUBIN,TOTAL 0.9 mg/dl (0-1.5); BLOOD UREA NITROGEN 12 mg/dl (6-24); CALCIUM 9.2 mg/dl (8.5-10.5); CARBON DIOXIDE-VENOUS 17 mmol/L (22-32); CHLORIDE 104 mmol/l (96-110); CREATININE 0.58 mg/dl (0.50-1.10); POTASSIUM 3.5 mmol/L (3.7-5.1); SODIUM 140 mmol/L (135-145); eGFR VALUE FOR BLACK >90 mL/Min
[2017-03-18 14:11] LABS: GLUCOSE 68 mg/dL (70-110)
[2017-03-18 17:42] LABS: URINE BILIRUBIN NEGATIVE (NEG); URINE BLOOD SMALL (NEG); URINE GLUCOSE (UA) NEGATIVE (NEG); URINE KETONE MODERATE (NEG); URINE LEUKOCYTE ESTERASE NEGATIVE (NEG); URINE NITRITE NEGATIVE (NEG); URINE PROTEIN SMALL (NEG); URINE SPECIFIC GRAVITY 1.015 (1.003-1.030)
[2017-03-18 17:43] LABS: URINE APPEARANCE HAZY; URINE COLOR YELLOW
[2017-03-18 17:52] LABS: URINE EPITHELIAL CELLS 0-1 /[HPF] (0-10); URINE RBC 0-1 /[HPF] (0-5); URINE WBC 0 /[HPF] (0-5)
[2017-03-18 17:56] LABS: MAGNESIUM 1.5 mg/dl (1.8-2.6); PHOSPHOROUS 3.3 mg/dl (2.5-4.9)
[2017-03-18 23:42] LABS: INR 0.9 INR (0.9-1.1); PROTHROMBIN TIME 10.6 SECONDS (9.0-13.6)
[2017-03-19 05:22] LABS: BASO % 0.7 % (0-2); EOS % 1.9 % (0-7); EOSINOPHIL ABSOLUTE COUNT 0.1 tho/cmm (0.0-0.7); HCT-HEMATOCRIT 34.8 % (34.0-49.0); HGB-HEMOGLOBIN 11.3 gm/dl (12.0-15.5); LYMPH % 26.4 % (20-45); LYMPH ABSOLUTE COUNT 1.1 tho/cmm (0.8-4.5); MCH (MEAN CORPUSCULAR HGB) 29.2 pg (28.0-32.0); MCHC MEAN CORPUSCULAR HGB CONC 32.5 % (32.0-36.0); MCV (MEAN CELL VOLUME) 89.9 fl (82.0-96.0); MEAN PLATELET VOLUME 8.9 cmc (9.4-12.4); MONO % 20.2 % (0-12); MONOCYTE ABSOLUTE COUNT 0.8 tho/cmm (0.0-1.2); NEUTROPHIL ABSOLUTE COUNT 2.1 tho/cmm (1.6-8.0); NEUTROPHIL-AUTOMATED 2.1 tho/cmm (1.6-8.0); NEUTROPHILS % 50.8 % (40-80); PLATELET COUNT 177 tho/cmm (150-450); RED BLOOD COUNT 3.87 mil/cmm (4.00-5.20); RED CELL DISTRIBUTION WIDTH 15.6 % (12.4-16.4); WHITE BLOOD COUNT 4.2 tho/cmm (4.0-10.0)
[2017-03-19 05:34] LABS: ANION GAP 14 mmol/L (0-20); BLOOD UREA NITROGEN 6 mg/dl (6-24); CALCIUM 8.2 mg/dl (8.5-10.5); CARBON DIOXIDE-VENOUS 22 mmol/L (22-32); CHLORIDE 104 mmol/l (96-110); GLUCOSE 78 mg/dL (70-110); POTASSIUM 3.2 mmol/L (3.7-5.1); SODIUM 137 mmol/L (135-145); eGFR VALUE FOR BLACK >90 mL/Min
[2017-03-19 05:43] LABS: AMYLASE 28 U/L (20-90); LIPASE 89 U/L (73-393)
[2017-03-19] MEDS ORDERED: VENTOLIN HFA18 G2 PO ×2 (16:41→16:43)
[2017-03-19] MEDS ORDERED: BAYER CHEWABLE81 M2 PO (16:56)
[2017-04-15] MEDS ORDERED: PROTONIX40 M2 PO (11:01)
[2017-04-15] MEDS ORDERED: ZOFRAN4 M2 PO/SL (11:01)
[2017-04-15] MEDS ORDERED: CARAFATE1 GM/10 M1 PO (11:02)
[2017-04-15] MEDS ORDERED: BYSTOLIC5 M1 PO (11:02)
[2017-04-15] MEDS ORDERED: PRINIVIL20 M1 PO (11:03)
[2017-04-15] MEDS ORDERED: STOP THE FOLLOWING: (11:03)
[2017-04-16] MEDS ORDERED: VANCOMYCIN HCL500 MG PO (11:19)
[2017-04-16] MEDS ORDERED: PERCOCET 10-321 EACH PO (11:20)
[2017-06-22] MEDS ORDERED: PRINIVIL20 M1 PO (01:14)
[2017-06-22] MEDS ORDERED: NORVASC10 M2 PO (01:15)
[2017-06-22] MEDS ORDERED: LOPRESSOR50 M1 PO (01:16)
[2017-06-22] MEDS ORDERED: OXYCONTIN10 M2 PO (01:16)
[2017-06-22] MEDS ORDERED: ULTRAM50 M1 PO (01:17)
[2017-06-22] MEDS ORDERED: PROTONIX40 M2 PO (01:17)
[2017-06-22] MEDS ORDERED: HYDROCHLOROTH12.5 M2 PO (01:18)
[2017-06-22] MEDS ORDERED: VALIUM2 M1 PO (01:18)
[2017-06-22] MEDS ORDERED: NEURONTIN600 M1 PO (01:19)
[2017-06-22] MEDS ORDERED: CYMBALTA30 M1 PO (01:19)
[2017-06-22] MEDS ORDERED: BACLOFEN10 M1 PO (01:20)
[2017-06-22] MEDS ORDERED: TYLENOL EXTRA500 M1 PO (01:20)
[2017-06-22] MEDS ORDERED: FEOSOL325 M1 PO (01:20)
[2017-06-22] MEDS ORDERED: MIRALAX17 G2 PO (01:21)
[2017-06-22] MEDS ORDERED: ZOFRAN4 M2 PO (01:21)
[2017-06-22] MEDS ORDERED: SYMBICORT 160-1 PUFF INH (01:24)
[2017-06-22] MEDS ORDERED: TENORMIN50 M1 PO (10:32)
[2017-06-22] MEDS ORDERED: NORVASC5 M2 PO (10:32)
[2017-06-22] MEDS ORDERED: SYMBICORT 80-41 PUFF INH (10:33)
== END 2017-03-19 16:30 | DRG 897 ==
LOC: EDMED 12:29 → EMR2 17:18 → PCUB 20:44
PROVIDERS: Emergency Medicine; ADMIT Internal Medicine
PROC: 02HV33Z Insertion of Infusion Device into Superior Vena Cava, Percutaneous Approach (ICD-10-PCS; principal; 2017-03-18)
DX: F10.230 Alcohol dependence with withdrawal, uncomplicated (principal); F32.9 Major depressive disorder, single episode, unspecified; F41.9 Anxiety disorder, unspecified; J44.9 Chronic obstructive pulmonary disease, unspecified; E87.6 Hypokalemia; F10.229 Alcohol dependence with intoxication, unspecified; Z87.891 Personal history of nicotine dependence; K21.9 Gastro-esophageal reflux disease without esophagitis; M06.9 Rheumatoid arthritis, unspecified
CPT/HCPCS: C1751; G0480; J0360; J1170; J1650; J2060; J2405; J7030; Q9967

== ENCOUNTER 2017-03-26 20:59 | Emergency (ER) | payer SELFPAY ==
[~2017-03-26 20:59] MED LIST changes: +BAYER CHEWABLE81 M2 PO
[2017-03-26] MEDS ORDERED: BACTRIM DS TAB1 EAC2 PO (21:06)
[2017-03-26] MEDS ORDERED: OMEPRAZOLE20 M3 PO (21:07)
[2017-03-26] MEDS ORDERED: CATAPRES0.1 M1 PO (21:08)
[2017-03-26] MEDS ORDERED: CYMBALTA60 M1 PO (21:09)
[2017-03-26 21:18] LABS: BASO % 0.7 % (0-2); EOS % 0.5 % (0-7); HCT-HEMATOCRIT 37.6 % (34.0-49.0); HGB-HEMOGLOBIN 12.7 gm/dl (12.0-15.5); LYMPH % 18.9 % (20-45); LYMPH ABSOLUTE COUNT 0.8 tho/cmm (0.8-4.5); MCH (MEAN CORPUSCULAR HGB) 30.2 pg (28.0-32.0); MCHC MEAN CORPUSCULAR HGB CONC 33.8 % (32.0-36.0); MCV (MEAN CELL VOLUME) 89.3 fl (82.0-96.0); MONO % 13.7 % (0-12); MONOCYTE ABSOLUTE COUNT 0.6 tho/cmm (0.0-1.2); NEUTROPHIL ABSOLUTE COUNT 2.7 tho/cmm (1.6-8.0); NEUTROPHIL-AUTOMATED 2.7 tho/cmm (1.6-8.0); NEUTROPHILS % 66.2 % (40-80); PLATELET COUNT 200 tho/cmm (150-450); RED BLOOD COUNT 4.21 mil/cmm (4.00-5.20); RED CELL DISTRIBUTION WIDTH 16.3 % (12.4-16.4); WHITE BLOOD COUNT 4.1 tho/cmm (4.0-10.0)
[2017-03-26 21:35] LABS: ANION GAP 16 mmol/L (0-20); BLOOD UREA NITROGEN 6 mg/dl (6-24); CALCIUM 9.3 mg/dl (8.5-10.5); CARBON DIOXIDE-VENOUS 24 mmol/L (22-32); CHLORIDE 98 mmol/l (96-110); CREATININE 0.46 mg/dl (0.50-1.10); GLUCOSE 127 mg/dL (70-110); SODIUM 135 mmol/L (135-145); eGFR VALUE FOR BLACK >90 mL/Min
[2017-03-26 21:44] LABS: ALB/GLOB RATIO 1.1 (0.8-2.0); ALBUMIN 4.2 g/dl (3.5-5.0); BILIRUBIN,DIRECT 0.3 mg/dl (0.0-0.3); BILIRUBIN,INDIRECT 0.4 mg/dL (0.0-1.0); BILIRUBIN,TOTAL 0.7 mg/dl (0-1.5)
[2017-03-27] MEDS ORDERED: ZOFRAN ODT4 MG PO (02:01)
[2017-03-27 02:20] LABS: URINE BILIRUBIN NEGATIVE (NEG); URINE BLOOD SMALL (NEG); URINE GLUCOSE (UA) NEGATIVE (NEG); URINE KETONE NEGATIVE (NEG); URINE LEUKOCYTE ESTERASE NEGATIVE (NEG); URINE NITRITE NEGATIVE (NEG); URINE PROTEIN NEGATIVE (NEG); URINE SPECIFIC GRAVITY 1.005 (1.003-1.030)
[2017-03-27 02:21] LABS: URINE APPEARANCE CLEAR; URINE COLOR YELLOW
[2017-03-27 02:31] LABS: URINE EPITHELIAL CELLS 0 /[HPF] (0-10); URINE WBC 0 /[HPF] (0-5)
[2017-03-27] MEDS ORDERED: BENTYL10 M1 PO (06:04)
[2017-04-15] MEDS ORDERED: PROTONIX40 M2 PO (11:01)
[2017-04-15] MEDS ORDERED: ZOFRAN4 M2 PO/SL (11:01)
[2017-04-15] MEDS ORDERED: CARAFATE1 GM/10 M1 PO (11:02)
[2017-04-15] MEDS ORDERED: BYSTOLIC5 M1 PO (11:02)
[2017-04-15] MEDS ORDERED: PRINIVIL20 M1 PO (11:03)
[2017-04-15] MEDS ORDERED: STOP THE FOLLOWING: (11:03)
[2017-04-16] MEDS ORDERED: VANCOMYCIN HCL500 MG PO (11:19)
[2017-04-16] MEDS ORDERED: PERCOCET 10-321 EACH PO (11:20)
[2017-06-22] MEDS ORDERED: PRINIVIL20 M1 PO (01:14)
[2017-06-22] MEDS ORDERED: NORVASC10 M2 PO (01:15)
[2017-06-22] MEDS ORDERED: LOPRESSOR50 M1 PO (01:16)
[2017-06-22] MEDS ORDERED: OXYCONTIN10 M2 PO (01:16)
[2017-06-22] MEDS ORDERED: ULTRAM50 M1 PO (01:17)
[2017-06-22] MEDS ORDERED: PROTONIX40 M2 PO (01:17)
[2017-06-22] MEDS ORDERED: VALIUM2 M1 PO (01:18)
[2017-06-22] MEDS ORDERED: HYDROCHLOROTH12.5 M2 PO (01:18)
[2017-06-22] MEDS ORDERED: NEURONTIN600 M1 PO (01:19)
[2017-06-22] MEDS ORDERED: CYMBALTA30 M1 PO (01:19)
[2017-06-22] MEDS ORDERED: FEOSOL325 M1 PO (01:20)
[2017-06-22] MEDS ORDERED: TYLENOL EXTRA500 M1 PO (01:20)
[2017-06-22] MEDS ORDERED: BACLOFEN10 M1 PO (01:20)
[2017-06-22] MEDS ORDERED: MIRALAX17 G2 PO (01:21)
[2017-06-22] MEDS ORDERED: ZOFRAN4 M2 PO (01:21)
[2017-06-22] MEDS ORDERED: SYMBICORT 160-1 PUFF INH (01:24)
[2017-06-22] MEDS ORDERED: TENORMIN50 M1 PO (10:32)
[2017-06-22] MEDS ORDERED: NORVASC5 M2 PO (10:32)
[2017-06-22] MEDS ORDERED: SYMBICORT 80-41 PUFF INH (10:33)
== END 2017-03-27 03:11 ==
LOC: EDMED 20:59
PROVIDERS: Emergency Medicine
DX: E87.6 Hypokalemia (principal); R11.2 Nausea with vomiting, unspecified; R19.7 Diarrhea, unspecified; R07.89 Other chest pain; I10 Essential (primary) hypertension; Z90.49 Acquired absence of other specified parts of digestive tract; Z79.82 Long term (current) use of aspirin; Z79.899 Other long term (current) drug therapy
CPT/HCPCS: C9113; G0480; J2270; J2405; J7030; P9612

== ENCOUNTER 2017-03-27 03:51 | Emergency (ER) | payer SELFPAY ==
[~2017-03-27 03:51] MED LIST changes: +ZOFRAN ODT4 MG PO
[2017-03-27] MEDS ORDERED: BENTYL10 M1 PO (06:04)
[2017-04-15] MEDS ORDERED: PROTONIX40 M2 PO (11:01)
[2017-04-15] MEDS ORDERED: ZOFRAN4 M2 PO/SL (11:01)
[2017-04-15] MEDS ORDERED: BYSTOLIC5 M1 PO (11:02)
[2017-04-15] MEDS ORDERED: CARAFATE1 GM/10 M1 PO (11:02)
[2017-04-15] MEDS ORDERED: STOP THE FOLLOWING: (11:03)
[2017-04-15] MEDS ORDERED: PRINIVIL20 M1 PO (11:03)
[2017-04-16] MEDS ORDERED: VANCOMYCIN HCL500 MG PO (11:19)
[2017-04-16] MEDS ORDERED: PERCOCET 10-321 EACH PO (11:20)
[2017-06-22] MEDS ORDERED: PRINIVIL20 M1 PO (01:14)
[2017-06-22] MEDS ORDERED: NORVASC10 M2 PO (01:15)
[2017-06-22] MEDS ORDERED: LOPRESSOR50 M1 PO (01:16)
[2017-06-22] MEDS ORDERED: OXYCONTIN10 M2 PO (01:16)
[2017-06-22] MEDS ORDERED: PROTONIX40 M2 PO (01:17)
[2017-06-22] MEDS ORDERED: ULTRAM50 M1 PO (01:17)
[2017-06-22] MEDS ORDERED: VALIUM2 M1 PO (01:18)
[2017-06-22] MEDS ORDERED: HYDROCHLOROTH12.5 M2 PO (01:18)
[2017-06-22] MEDS ORDERED: NEURONTIN600 M1 PO (01:19)
[2017-06-22] MEDS ORDERED: CYMBALTA30 M1 PO (01:19)
[2017-06-22] MEDS ORDERED: BACLOFEN10 M1 PO (01:20)
[2017-06-22] MEDS ORDERED: FEOSOL325 M1 PO (01:20)
[2017-06-22] MEDS ORDERED: TYLENOL EXTRA500 M1 PO (01:20)
[2017-06-22] MEDS ORDERED: MIRALAX17 G2 PO (01:21)
[2017-06-22] MEDS ORDERED: ZOFRAN4 M2 PO (01:21)
[2017-06-22] MEDS ORDERED: SYMBICORT 160-1 PUFF INH (01:24)
[2017-06-22] MEDS ORDERED: TENORMIN50 M1 PO (10:32)
[2017-06-22] MEDS ORDERED: NORVASC5 M2 PO (10:32)
[2017-06-22] MEDS ORDERED: SYMBICORT 80-41 PUFF INH (10:33)
== END 2017-03-27 07:00 ==
LOC: EDMED 03:51
DX: R19.7 Diarrhea, unspecified (principal); R11.10 Vomiting, unspecified; R10.9 Unspecified abdominal pain; I10 Essential (primary) hypertension; J44.9 Chronic obstructive pulmonary disease, unspecified; Z79.82 Long term (current) use of aspirin; Z79.899 Other long term (current) drug therapy; Z87.891 Personal history of nicotine dependence